=== PATIENT | female | born 1995 | race Caucasian/White ===

== ENCOUNTER 2022-12-31 02:20 | Emergency (ER) | payer MEDICAID ==
[~2022-12-31] VITALS: Ht 170.2 cm; Wt 52.2 kg
[2022-12-31 02:22] VITALS: BP 99/73; PULSE 100; RESP 16; TEMP 96; O2SAT 100
[2022-12-31 03:47] VITALS: BP 99/73; PULSE 100; RESP 16; TEMP 96; O2SAT 100
== END 2022-12-31 03:47 | disposition home or self-care (01) ==
LOC: MED 02:20
DX: M25.562 Pain in left knee (principal); Z59.00 Homelessness unspecified; Z79.899 Other long term (current) drug therapy
CPT/HCPCS: 99283